=== PATIENT | female | born 1980 | race Caucasian/White ===

== ENCOUNTER 2019-12-20 11:34 | Outpatient (CLI) | payer OTHER, SELFPAY ==
--- NOTE | ~2019-12-20 | XR_ITS ---
EXAMINATION: XR knee RT min 4V DATE: 12/20/2019 12:14 INDICATION: Right knee pain. TECHNIQUE: 4 views of right knee were obtained. COMPARISON: None. FINDINGS: Bone alignment is normal. No fracture. There is mild osteoarthritis of medial and patellofe moral compartments characterized by tiny marginal osteophytes. No knee joint effusion. IMPRESSION: 1. Mild right knee osteoarthritis. Reviewed, dictated and finalized at location A.
--- NOTE | ~2019-12-20 | XR_ITS ---
EXAMINATION: XR lumbar spine 2-3V DATE: 12/20/2019 12:14 INDICATION: Lumbar spondylosis. TECHNIQUE: 3 views of lumbar spine were obtained. COMPARISON: Lumbar spine radiographs 06/20/2014, CT abdomen and pelvis 06/20/2018 FINDINGS: There is 9 degrees levocurvature of thoracolumbar spine. There is mild chronic anterior wed ging of L1 vertebral body. There is moderately decreased disc height at L5-S1. There is multilevel fa cet joint osteoarthritis, severe on the right at L4-L5. There is a total left hip arthroplasty. IMPRESSION: 1. Moderate lower lumbar spondylosis. Reviewed, dictated and finalized at location A.
--- NOTE | ~2019-12-20 | XR_ITS ---
EXAMINATION: XR hip LT min 2V DATE: 12/20/2019 12:14 INDICATION: Left hip arthritis. TECHNIQUE: 2 views of left hip were obtained. COMPARISON: Left hip radiographs 06/20/2014 FINDINGS: There is a total left hip arthroplasty in near-anatomic alignment. No fractures. No peripro sthetic lucency to suggest loosening or infection. IMPRESSION: 1. Total left hip arthroplasty in near-anatomic alignment. Reviewed, dictated and finalized at location A.
--- NOTE | ~2019-12-20 | XR_ITS ---
EXAMINATION: XR knee LT min 4V DATE: 12/20/2019 12:14 INDICATION: Left knee pain. TECHNIQUE: 4 views of left knee were obtained. COMPARISON: None. FINDINGS: Bone alignment is normal. No fracture. There is mild osteoarthritis of medial and patellofe moral compartments characterized by tiny marginal osteophytes. No knee joint effusion. IMPRESSION: 1. Mild left knee osteoarthritis. Reviewed, dictated and finalized at location A.
== END 2019-12-20 11:35 | disposition home or self-care (01) ==
LOC: ANHIMG 11:44
PROVIDERS: PCP Family Medicine; Visit Provider Nurse Practitioner Family
DX: M47.896 Other spondylosis, lumbar region (principal); M16.12 Unilateral primary osteoarthritis, left hip; M17.0 Bilateral primary osteoarthritis of knee
CPT/HCPCS: 72100; 73502; 73564

== ENCOUNTER 2020-03-29 12:40 | Outpatient (CLI) | payer OTHER, SELFPAY ==
--- NOTE | ~2020-03-29 | MR_ITS ---
EXAMINATION: MR lumbar spine wo con EXAM DATE: 03/29/2020 14:08 INDICATION: Low back pain. TECHNIQUE: Multi-sequential, multiplanar MR images of the lumbar spine were obtained without contrast . Sagittal T1, T2, T2 fat saturation images. Axial T2 weighted images. There is no prior study for comparison. FINDINGS: Mild thoracolumbar levoscoliosis. The vertebral bodies are aligned in the AP dimension. The re are no suspicious marrow signal abnormalities. The conus medullaris terminates at the L1/2 level a nd has normal signal intensity and morphology. There is mild to moderate disc disease at T11-12, T12- L1 and L5-S1. Mild disc disease L1-L4. Small central protrusion at T10-11 slightly indenting the spin al cord and likely causing mild central canal stenosis. Exophytic lesion off left kidney, imaged port ion consistent with 5 cm cyst. Level by level evaluation: T11-12: There is a mild to moderate diffuse disc bulge, small superimposed left central protrusion i ndenting spinal cord without edema. Facet arthropathy: Mild bilateral. Neural foraminal stenosis: No stenosis. Central canal stenosis: Mild. T12-L1: Disc does not extend beyond the endplate margin. Facet arthropathy: Minimal. Neural foraminal stenosis: No stenosis. Central canal stenosis: No stenosis. L1-L2: There is a mild diffuse disc bulge. Facet arthropathy: Mild. Neural foraminal stenosis: No stenosis. Central canal stenosis: No stenosis. L2-L3: There is a mild diffuse disc bulge. Facet arthropathy: Mild. Neural foraminal stenosis: No stenosis. Central canal stenosis: No stenosis. L3-L4: There is a mild diffuse disc bulge. Facet arthropathy: Mild. Neural foraminal stenosis: No stenosis. Central canal stenosis: No stenosis. L4-L5: There is a mild diffuse disc bulge. Facet arthropathy: Mild to moderate. Neural foraminal stenosis: Mild right. Central canal stenosis: No stenosis. L5-S1: There is a mild to moderate diffuse disc bulge. Facet arthropathy: Mild. Neural foraminal stenosis: Moderate left, mild right. Central canal stenosis: Mild. IMPRESSION: 1. L5-S1 moderate left neural foraminal stenosis. 2. Lesser spondylosis other levels. Reviewed, dictated and finalized at location A.
== END 2020-03-29 12:41 | disposition home or self-care (01) ==
PROVIDERS: PCP Family Medicine; Visit Provider Nurse Practitioner Family
DX: M54.5 Low back pain (principal)
CPT/HCPCS: 72148

== ENCOUNTER 2022-04-30 10:59 | Outpatient (CLI) | payer OTHER, SELFPAY ==
--- NOTE | ~2022-04-30 | XR_ITS ---
EXAMINATION: XR chest 2V 04/30/2022 11:17 INDICATION: Cough and wheezing PROCEDURE: 2 view chest COMPARISON: No prior studies for comparison. FINDINGS: The lungs are clear. The cardiomediastinal silhouette is within normal limits. There are no pleural effusions. There is no pneumothorax suspected. IMPRESSION: 1: NO ACUTE CARDIOPULMONARY DISEASE. Reviewed, dictated and finalized at location B.
== END 2022-04-30 11:00 | disposition home or self-care (01) ==
PROVIDERS: PCP Family Medicine; Visit Provider Nurse Practitioner Adult Health
DX: J44.9 Chronic obstructive pulmonary disease, unspecified (principal)
CPT/HCPCS: 71046

== ENCOUNTER 2022-05-13 10:18 | Outpatient (CLI) | payer OTHER, SELFPAY ==
--- NOTE | 2022-05-13 14:08 | WPDPFTINT ---
PFT Procedure Performed PFT Procedure Performed Plethysmography (Lung Vol) Diffusing Cap (DLCO) Flow Vol Loop Spirometry w/o Bronchodil PFT Interpretation Lung volumes were measured with the body plethysmography method. The diminished expiratory reserve volume is related to obesity. The remaining lung volumes are unremarkable. Spirometry showed diminished expiratory flow rates and a diminished FEV1 to FVC ratio 65%, indicative of obstructive airway disease. No post bronchodilator study carried out. Lung diffusion capacity is within the normal range at 93% predicted. The flow volume loop is consistent with obstructive airway disease. In comparison to previous study in 2015 the forced vital capacity and FEV1 are now greater by approximately 0.15 L each. Impression: Mild obstructive airway disease. Lung diffusion capacity within the normal range.
== END 2022-05-13 10:19 | disposition home or self-care (01) ==
PROVIDERS: PCP Family Medicine; Visit Provider Nurse Practitioner Adult Health
DX: J44.1 Chronic obstructive pulmonary disease with (acute) exacerbation (principal)
CPT/HCPCS: 94375; 94726; 94729

== ENCOUNTER 2025-04-09 14:04 | Outpatient (CLI) | payer OTHER, SELFPAY ==
--- NOTE | ~2025-04-09 | US_ITS ---
Clinical history:Thyroid nodules. EXAM:Ultrasound thyroid TECHNIQUE:Multiple static grayscale images and color Doppler images were obtained of the thyroid gland. Comparisons:None available FINDINGS: Right thyroid lobe measures 5.4 x 1.3 x 1.9 cm and is heterogeneous. Left thyroid lobe measures 4.2 x 1.5 x 1.2 cm and is heterogeneous. Isthmus measures 0.4 cm and is heterogeneous. No discrete thyroid nodules identified. Normal vascular flow to the thyroid gland. IMPRESSION: 1. Thyroid gland is heterogeneous. 2. No discrete thyroid nodules identified. Reviewed, dictated and finalized at location Q.
--- OUTSIDE RECORDS SUMMARY | 2025-04-09 15:00 | XMS_ITS | Clinical Summary ---
Author Organization [facility] Address [address] [place] [address] Care Team Providers Care Process Expert Name Role Phone Jaylan Black MD Primary Care Provider [phone] Source Comments [facility],non-owned Affiliates and Associated Physician Practices is amultiple site organization consisting of ambulatory clinics and hospital sitesin [place], [place], [place] and [place]. This disclosure is being madepursuant to the Care Everywhere program and may not contain all information available regarding this patient. Last updated 18.[facility] Allergies Active Allergy Reactions Criticality Noted Date Comments Metronidazole Urticaria Medium 05/30/2018 Medications * Be aware that medications may not be up to date on this document. Alwaysverify current medications with the patient. VENTOLIN HFA 108 (90 BASE) MCG/ACT inhaler Take 90 mcg by mouth once daily 8 Active ALPRAZolam (XANAX) 0.5 MG tablet Take 0.5 mg by mouth as needed 8 Active QVAR REDIHALER 80 MCG/ACT inhaler 80 mg by Mouth/Throat route 2 times daily 8 Active CALCIUM 600-D 600-400 MG-UNIT Take 600 mg by mouth 2 times daily 8 Active citalopram (CELEXA) 40 MG tablet Take 40 mg by mouth once daily 8 Active famotidine (PEPCID) 40 MG tablet Take 40 mg by mouth 2 times daily 8 Active multivitamin daily (ONE A DAY) tablet Take by mouth once daily 8 Active pantoprazole EC (PROTONIX) 40 MG tablet Take 40 mg by mouth 2 times daily 8 Active spironolactone (ALDACTONE) 100 MG tablet Take 100 mg by mouth 2 times daily 8 Active ANORO ELLIPTA 62.5-25 MCG/INH inhaler Take 25 mcg by mouth once daily 8 Active zolpidem (AMBIEN) 10 MG tablet Take 10 mg by mouth at bedtime 8 Active oxyCODONE, immediate release, (ROXICODONE) 5 MG tablet Take 1 tablet by mouth every 4 hours as needed for Pain 25 tablet 8 Active ibuprofen (MOTRIN) 600 MG tabletIndicatio ns:S/P unilateral salpingo-oophor ectomy,Wound dehiscence Take 1 tablet by mouth every 8 hours as needed for Pain 40 tablet 8 Active oxyCODONE, immediate release, (ROXICODONE) 5 MG tablet Take 1-2 tablets by mouth every 6 hours as needed for Pain 20 tablet 8 Active Additional Information Patient not taking.Reported on 07/13/2018 meloxicam (MOBIC) 15 MG tablet Take 15 mg by mouth once daily Active Active Problems Problem Noted Date Diagnosed Date S/P unilateral salpingo-oophorectomy 06/12/2018 Family History Medical History Relation Name Comments Hypertension Brother CAD (Coronary Artery Disease) Father Cancer - Breast Maternal Grandmother Osteoporosis Mother Relation Name Status Comments Brother Father Maternal Grandmother Mother Social History Tobacco Use Types Packs/Day Years Used Date Smoking Tobacco: Every Day Smokeless Tobacco: Never Tobacco Cessation:Ready to Q uit: Yes; Counseling Given: Yes Alcohol Use Standard Drinks/Week Comments Yes 0 (1 standard drink = 0.6 oz pur e alcohol) occasionally Comments No Sex and Gender Information Value Date Recorded Sex Assigned at Not on file Legal Sex Female 10:58 AM [employer] Gender Identity Not on file Sexual Orientation Not on file Last Filed Vital Signs Vital Sign Reading Time Taken Comments Blood Pressure 115/71 07/13/2018 2:42 PM [employer] Pulse 88 09/06/2019 4:56 PM [employer] Temperature 37.3 C (99.2 F) 09/06/2019 4:56 PM [employer] Respiratory Rate 16 09/06/2019 4:56 PM [employer] Oxygen Saturation 98% 09/06/2019 4:56 PM [employer] Inhaled Oxygen Concentration - - Weight 103.4 kg (228 lb) 09/06/2019 4:56 PM [employer] Height 162.6 cm (5' 4) 09/06/2019 4:56 PM [employer] Body Mass Index 39.14 09/06/2019 4:56 PM [employer] Plan of Treatment Health Maintenance Due Date Last Done Comments COLOGUARD (AGES 45-75) - COL ON CA SCREENING 1979 COLON MONITORING 1979 COLONOSCOPY - COLON CA SCREENING 1979 CT COLONOGRAPHY - COLON CA SCREENING 1979 Colorectal Cancer Screening 1979 FIT - COLON CA SCREENING 1979 FLEX SIG - COLON CA SCREENING 1979 LIPID TESTING 1979 MAMMOGRAM 1979 HIV SCREENING 12/21/1994 HEPATITIS C SCREENING 12/17/1997 DTAP/TDAP/TD VACCINES (1 - Tdap) 12/21/1998 HEPATITIS B VACCINE (1 of 3 - 19+ 3-dose series) 12/21/1998 PNEUMOCOCCAL VACCINE (1 of 2 - PCV) 12/21/1998 HPV VACCINE (1 - 3-dose SCDM series) 12/21/2006 DEPRESSION SCREENING 07/04/2024 COVID-19 VACCINE (1 - 2023-2 5 season) 2025 INFLUENZA VACCINE (#1) 2025 ZOSTER VACCINE (1 of 2) 12/21/2029 HIB VACCINE Aged Out No longer eligi ble based on patient's age to complete this topic MENINGOCOCCAL (Group B) VACC INE SHARED DECISION-MAKING Aged Out No longer eligibl e based on patient's age to complete this topic MENINGOCOCCAL GROUPS A/C/Y/W VACCINE Aged Out No longer eligible b ased on patient's age to complete this topic [place] [address] [address] [facility] Advance Directives * Full Code (Latest Code Status on File) Date Activated Date Inactivated Comments 06/12/2018 11:17 AM 06/14/2018 11:58 AM Care Teams Process Expert Relationship Specialty Start Date End Date Jaylan Black MD [address] [place] [address] PCP - General 05/17/18
--- OUTSIDE RECORDS SUMMARY | 2025-04-09 15:00 | XMS_ITS | Clinical Summary ---
Author Organization [facility] Address [address] [facility], [address] [address] Phone Care Team Providers Care Sample Distributor Name Role Phone Jaylan Black MD Primary Care Provider Social History Tobacco Use Types Packs/Day Years Used Date Smoking Tobacco: Never Assessed Comments Unknown Sex and Gender Information Value Date Recorded Sex Assigned at Not on file Legal Sex Female 8:42 PM CDT Gender Identity Not on file Sexual Orientation Not on file Plan of Treatment Health Maintenance Due Date Last Done Comments Hepatitis C Virus (HCV) Screening 1979 TdaP Immunization 1979 Hepatitis B Immunization (1 of 3 - 19+ 3-dose series) 12/21/1998 Pap Smear 12/21/2000 Human Papillomavirus (HPV) Immunization (1 - 3-dose SCDM series) 12/21/2006 Cervical Cancer Screening (CCS) 12/21/2009 HPV/Cotest 12/21/2009 Cologuard 12/21/2024 Colonoscopy 12/21/2024 Colorectal Cancer Screening 12/21/2024 Immunochemical Fecal Occult Blood 12/21/2024 Influenza Immunization (#1) 2025 SARS-COV-2 Immunization ( season) 2025 Respiratory Syncytial Virus (RSV) Immunization (Adult) (1 - 1-dose 75+ series) 12/21/2054 Meningococcal Immunization (ACWY) Aged Out No longer eligible based on patient's age to complete this topic Pneumococcal Immunization Combined Aged Out No longer eligible based on patient's age to complete this topic Rotavirus Immunization Aged Out No lo nger eligible based on patient's age to complete this topic Care Teams Sample Distributor Relationship Specialty Start Date End Date Jaylan Black MD [address] [place] [id number] PCP - General Family Medicine 04/06/17
== END 2025-04-09 14:05 | disposition home or self-care (01) ==
PROVIDERS: PCP Family Medicine; Visit Provider Nurse Practitioner Family
DX: E05.90 Thyrotoxicosis, unspecified without thyrotoxic crisis or storm (principal)
CPT/HCPCS: 76536